=== PATIENT | male | born 1950 | race African-American/Black ===

== ENCOUNTER 2017-07-18 13:44 | Emergency (ER) | payer OTHER ==
[~2017-07-18] VITALS: Ht 167.6 cm; Wt 73.0 kg
[~2017-07-18 13:44] MED LIST: CYCL-36 PO; FAMO40TA PO; IBUP600T26 PO; LORTA5 PO; MOBI7.5T PO; TEMA15 PO; TIZA4 PO; ZIAC5TAB PO
[2017-07-18 13:55] VITALS: BP 188/81; PULSE 56; RESP 17; TEMP 98.5; O2SAT 99
[2017-07-18] MEDS ORDERED: SODIUM CHLOR 0.9% 1000 ML INJ 1,000 ML IV SCH (15:54)
[2017-07-18] MEDS ORDERED: LIDOCAINE VISCOUS 2% SOLN 15 ML UDC PO ONE (16:00)
[2017-07-18] MEDS ORDERED: MORPHINE SULFATE 8 MG/ML INJ IV PUSH ONE (16:00)
[2017-07-18] MEDS ORDERED: ONDANSETRON HCL 4 MG/2 ML VIAL IVP ONE (16:00)
[2017-07-18] MEDS ORDERED: KETOROLAC TROMETHAMINE 30 MG/ML (IVP) VIAL IVP ONE (16:00)
[2017-07-18] MEDS ORDERED: SODIUM CHLORIDE 0.9% FLUSH 10 ML FLUSH IV FLUSH PRN (16:00)
[2017-07-18] MEDS ORDERED: ALUMINUM/MAGNESIUM/SIMETH 30 ML CUP PO ONE (16:00)
[2017-07-18 16:07] LABS: BILIRUBIN, URINE NEG (NEG); BLOOD, URINE NEG (NEG); GLUCOSE,URINE NEG (NEG); HYALINE CAST, URINE 2 /lpf (RARE); KETONE, URINE NEG (NEG); MUCUS URINE MOD /lpf (OCC); NITRITE,URINE NEG (NEG); PH, URINE 5.5 (5.0-8.5); SQUAMOUS EPITHELIAL CELL URINE <1 /hpf (0-5); URINE COLOR YELLOW (YELLW/STRAW); URINE LEUKOCYTE ESTERASE NEG (NEG)
[2017-07-18 16:52] VITALS: O2SAT 100
[2017-07-18 16:53] VITALS: BP 192/94; PULSE 54; RESP 18; O2SAT 100
--- NOTE | 2017-07-18 17:16 | PD ---
Physical Exam Date Seen by Provider: Jul 18, 2017 Time Seen by Provider: 17:15 Narrative The patient is a 66-year-old male who was initially ChinDr. Wilkes. Please refer to the initial history, physical, diagnostic evaluation, and treatment modality plan. The patient was signed out at 5 PM laboratory evaluation and CT pending. Data Data Last Documented VS Vital Signs Date Time Temp Pulse Resp B/P (MAP) Pulse Ox O2 Delivery O2 Flow Rate FiO2 07/18/17 19:20 52 18 175/82 (113) 99 Room Air 07/18/17 13:55 98.5 Orders Orders Urinalysis - C+S If Indicated (07/18/17 13:57) Complete Blood Count With Diff (07/18/17 15:54) Comprehensive Metabolic Panel (07/18/17 15:54) Lipase (07/18/17 15:54) Ct Abd/Pel W Iv Contrast(Rout) (07/18/17 15:54) Iv Access Insert/Monitor (07/18/17 15:54) Ecg Monitoring (07/18/17 15:54) Oximetry (07/18/17 15:54) Ondansetron Inj (Zofran Inj) (07/18/17 16:00) Sodium Chlor 0.9% 1000 Ml Inj (Ns 1000 M (07/18/17 15:54) Sodium Chloride 0.9% Flush (Ns Flush) (07/18/17 16:00) Ketorolac Inj (Toradol Inj) (07/18/17 16:00) Morphine Inj (Morphine Inj) (07/18/17 16:00) Al-Mag Hy-Si 40-40-4 Mg/Ml Liq (Mag-Al P (07/18/17 16:00) Lidocaine 2% Viscous (Xylocaine 2% Visco (07/18/17 16:00) Iohexol 350 Inj (Omnipaque 350 Inj) (07/18/17 18:41) Potassium Chloride (Kcl) (07/18/17 19:45) Labs Laboratory Tests Test 07/18/17 15:08 07/18/17 16:30 Urine Color YELLOW Urine Turbidity CLEAR Urine pH 5.5 Urine Specific [place] 1.019 Urine Protein TRACE mg/dL Urine Glucose (UA) NEG mg/dL Urine Ketones NEG mg/dL Urine Occult Blood NEG Urine Nitrite NEG Urine Bilirubin NEG Urine Urobilinogen 2.0 MG/DL Urine Leukocyte Esterase NEG Urine WBC LESS THAN 1 /hpf Urine Squamous Epithelial Cells <1 /hpf Urine Hyaline Casts 2 /lpf Urine Mucus MOD /lpf Microscopic Urinalysis Comment CULT NOT INDICATED White Blood Count 4.7 TH/MM3 Red Blood Count 4.23 MIL/MM3 Hemoglobin 15.0 GM/DL Hematocrit 43.0 % Mean Corpuscular Volume 101.8 FL Mean Corpuscular Hemoglobin 35.6 PG Mean Corpuscular Hemoglobin Concent 34.9 % Red Cell Distribution Width 16.1 % Platelet Count 141 TH/MM3 Mean Platelet Volume 8.8 FL Neutrophils (%) (Auto) 55.0 % Lymphocytes (%) (Auto) 32.9 % Monocytes (%) (Auto) 9.1 % Eosinophils (%) (Auto) 2.1 % Basophils (%) (Auto) 0.9 % Neutrophils # (Auto) 2.6 TH/MM3 Lymphocytes # (Auto) 1.6 TH/MM3 Monocytes # (Auto) 0.4 TH/MM3 Eosinophils # (Auto) 0.1 TH/MM3 Basophils # (Auto) 0.0 TH/MM3 CBC Comment DIFF FINAL Differential Comment Blood Urea Nitrogen 9 MG/DL Creatinine 0.76 MG/DL Random Glucose 95 MG/DL Total Protein 8.3 GM/DL Albumin 4.2 GM/DL Calcium Level 9.2 MG/DL Alkaline Phosphatase 103 U/L Aspartate Amino Transf (AST/SGOT) 55 U/L Alanine Aminotransferase (ALT/SGPT) 24 U/L Total Bilirubin 1.8 MG/DL Sodium Level 135 MEQ/L Potassium Level 3.1 MEQ/L Chloride Level 99 MEQ/L Carbon Dioxide Level 28.8 MEQ/L Anion Gap 7 MEQ/L Estimat Glomerular Filtration Rate 124 ML/MIN Lipase 186 U/L [facility] Medical Record Reviewed: Yes Supervised Visit with ANGELO: No Interpretation(s) Last Impressions Abdomen/Pelvis CT 07/18/17 2754 Signed Impressions: Service Date/Time: Tuesday, July 18, 2017 18:39 - CONCLUSION: Negative for acute process. I do not see etiology for right-sided abdominal pain. Valdez Villa MD FACR Laboratory Tests Test 07/18/17 15:08 07/18/17 16:30 Urine Color YELLOW Urine Turbidity CLEAR Urine pH 5.5 Urine Specific [place] 1.019 Urine Protein TRACE mg/dL Urine Glucose (UA) NEG mg/dL Urine Ketones NEG mg/dL Urine Occult Blood NEG Urine Nitrite NEG Urine Bilirubin NEG Urine Urobilinogen 2.0 MG/DL Urine Leukocyte Esterase NEG Urine WBC LESS THAN 1 /hpf Urine Squamous Epithelial Cells <1 /hpf Urine Hyaline Casts 2 /lpf Urine Mucus MOD /lpf Microscopic Urinalysis Comment CULT NOT INDICATED White Blood Count 4.7 TH/MM3 Red Blood Count 4.23 MIL/MM3 Hemoglobin 15.0 GM/DL Hematocrit 43.0 % Mean Corpuscular Volume 101.8 FL Mean Corpuscular Hemoglobin 35.6 PG Mean Corpuscular Hemoglobin Concent 34.9 % Red Cell Distribution Width 16.1 % Platelet Count 141 TH/MM3 Mean Platelet Volume 8.8 FL Neutrophils (%) (Auto) 55.0 % Lymphocytes (%) (Auto) 32.9 % Monocytes (%) (Auto) 9.1 % Eosinophils (%) (Auto) 2.1 % Basophils (%) (Auto) 0.9 % Neutrophils # (Auto) 2.6 TH/MM3 Lymphocytes # (Auto) 1.6 TH/MM3 Monocytes # (Auto) 0.4 TH/MM3 Eosinophils # (Auto) 0.1 TH/MM3 Basophils # (Auto) 0.0 TH/MM3 CBC Comment DIFF FINAL Differential Comment Blood Urea Nitrogen 9 MG/DL Creatinine 0.76 MG/DL Random Glucose 95 MG/DL Total Protein 8.3 GM/DL Albumin 4.2 GM/DL Calcium Level 9.2 MG/DL Alkaline Phosphatase 103 U/L Aspartate Amino Transf (AST/SGOT) 55 U/L Alanine Aminotransferase (ALT/SGPT) 24 U/L Total Bilirubin 1.8 MG/DL Sodium Level 135 MEQ/L Potassium Level 3.1 MEQ/L Chloride Level 99 MEQ/L Carbon Dioxide Level 28.8 MEQ/L Anion Gap 7 MEQ/L Estimat Glomerular Filtration Rate 124 ML/MIN Lipase 186 U/L Differential Diagnosis Differential diagnosis includes nephrolithiasis, atypical cholecystitis, renal cell carcinoma, pancreatitis, atypical appendicitis, diverticulitis, pyelonephritis, abdominal pain NOS. Narrative Course The patient was initially evaluated by the previous physician, Dr. Wilkes. Please refer to the initial history, physical, diagnostic evaluation, and treatment modality plan. The patient was identified p.m. with CT of the abdomen and pelvis and laboratory evaluation pending. Patient's bilirubin is slightly elevated at 1.8. AST is slightly elevated in comparison ALT and MCV was 103, patient does have a history of alcohol use. The patient was reevaluated, his back pain has been ongoing for several years. He does have pain that starts in the right SI and radiates to the right flank. Patient's pain did improve with medications. He will be discharged home with a copy of his CT results and lab results. He is advised to follow-up with his primary physician and may benefit from outpatient follow-up with a pain interventionalists in regards to injections for his pain of 2 years duration. Return if symptoms worsen or progress. Diagnosis Primary Impression: Right flank pain, chronic Patient Instructions: General Instructions Additional Instruction: Medications as directed. Follow-up with your primary physician. Please provide the patient a copy of the CT results and lab results at discharge. Med/Other Pt SpecificInfo: Prescription(s) given Scripts Ibuprofen (Ibuprofen) 400 Mg Tab 400 MG PO Q6H Y for PAIN SCALE 1 TO 10, #12 TAB 0 Refills Prov: Devonte Huggins MD 07/18/17 Tramadol (Tramadol) 50 Mg Tab 50 MG PO Q6H Y for PAIN, #12 TAB 0 Refills Prov: Devonte Huggins MD 07/18/17 Disposition: 01 DISCHARGE HOME Condition: Stable Devonte Huggins MD Jul 18, 2017 17:16
--- NOTE | 2017-07-18 17:24 | PD ---
HPI Chief Complaint: Flank/Kidney Pain Time Seen by Provider: 15:50 Travel History International Travel<30 days: No Contact w/Intl Traveler<30days: No Traveled to known affect area: No History of Present Illness HPI 66-year-old male complains of right flank pain. He states the pain severe. He said the pain for months and is worsening. He reports the pain to be intermittent and at times unbearable. There is radiation to the anterior abdomen. He's had no vomiting. He follows with Dr. Portillo once annually following a routine colonoscopy. Evidently an ultrasound was planned however the patient skipped the appointment today to come to the ER instead. He also reports blood work was done on Sunday however is unsure of the results. No vomiting or diarrhea. Patient denies urinary frequency and dysuria. PFSH Past Medical History Cancer: No Cardiovascular Problems: No Diabetes: No Diminished Hearing: No Endocrine: No Gastrointestinal Disorders: No GERD: Yes Genitourinary: No Hepatitis: No Hiatal Hernia: No Hypertension: Yes Immune Disorder: No Medical other: No Musculoskeletal: Yes (hx: back pain ) Neurologic: No Psychiatric: No Reproductive: No Respiratory: No Thyroid Disease: No Past Surgical History Abdominal Surgery: Yes (HERNIA REPAIR) AICD: No Cardiac Surgery: No Ear Surgery: No Endocrine Surgery: No Eye Surgery: No Genitourinary Surgery: No Gynecologic Surgery: No Joint Replacement: No Neurologic Surgery: Yes (CERVICAL FUSION 2007) Oral Surgery: No Pacemaker: No Thoracic Surgery: No Other Surgery: Yes (cervical fusion 2008) Social History Alcohol Use: Yes (occassionally ) Tobacco Use: Yes (04/19 PPD) Substance Use: No Allergies-Medications (Allergen,Severity, Reaction): Coded Allergies: No Known Allergies (Verified , 07/16/13) Reported Meds & Prescriptions Reported Meds & Active Scripts Active Flexeril (Cyclobenzaprine HCl) 10 Mg Tab 10 Mg PO Q8HR [place] 5/325 (Hydrocodone/Acetaminophen 5/325) 5 mg/325 mg Tab 1 Tab PO Q6H PRN Ibuprofen 600 Mg Tab 600 Mg PO Q8H PRN Reported Mobic (Meloxicam) 7.5 Mg Tab 7.5 Mg PO BID Zanaflex 4 mg (Tizanidine HCl) 4 Mg Tab 1 Tab PO Q8H [place] 5/6.25 (Bisoprolol Fumarate/HCTZ) Tab 1 Tab PO DAILY Famotidine 40 Mg Tab 40 Mg PO HS Restoril 15 mg (Temazepam) 15 Mg Cap 1 Cap PO HS Review of Systems Except as stated in HPI: all other systems reviewed are Neg Physical Exam Narrative GENERAL: 66 yo M, WNWD, mild distress 2/2 pain Vital Signs Date Time Temp Pulse Resp B/P (MAP) Pulse Ox O2 Delivery O2 Flow Rate FiO2 07/18/17 16:53 54 18 192/94 (126) 100 Room Air 07/18/17 16:52 100 Room Air 07/18/17 13:55 98.5 56 17 188/81 (116) 99 SKIN: Warm and dry. HEAD: Atraumatic. Normocephalic. EYES: Pupils equal and round. No scleral icterus. No injection or drainage. ENT: No nasal bleeding or discharge. Mucous membranes pink and moist. NECK: Trachea midline. No JVD. CARDIOVASCULAR: Regular rate and rhythm. RESPIRATORY: No accessory muscle use. Clear to auscultation. Breath sounds equal bilaterally. GASTROINTESTINAL: Abdomen soft, non-tender, nondistended. Hepatic and splenic margins not palpable. MUSCULOSKELETAL: Extremities without clubbing, cyanosis, or edema. No obvious deformities. NEUROLOGICAL: Awake and alert. No obvious cranial nerve deficits. Motor grossly within normal limits. Five out of 5 muscle strength in the arms and legs. Normal speech. PSYCHIATRIC: Appropriate mood and affect; insight and judgment normal. Data Data Last Documented VS Vital Signs Date Time Temp Pulse Resp B/P (MAP) Pulse Ox O2 Delivery O2 Flow Rate FiO2 07/18/17 16:53 54 18 192/94 (126) 100 Room Air 07/18/17 13:55 98.5 Orders Orders Urinalysis - C+S If Indicated (07/18/17 13:57) Complete Blood Count With Diff (07/18/17 15:54) Comprehensive Metabolic Panel (07/18/17 15:54) Lipase (07/18/17 15:54) Urinalysis - C+S If Indicated (07/18/17 15:54) Ct Abd/Pel W Iv Contrast(Rout) (07/18/17 15:54) Iv Access Insert/Monitor (07/18/17 15:54) Ecg Monitoring (07/18/17 15:54) Oximetry (07/18/17 15:54) Ondansetron Inj (Zofran Inj) (07/18/17 16:00) Sodium Chlor 0.9% 1000 Ml Inj (Ns 1000 M (07/18/17 15:54) Sodium Chloride 0.9% Flush (Ns Flush) (07/18/17 16:00) Ketorolac Inj (Toradol Inj) (07/18/17 16:00) Morphine Inj (Morphine Inj) (07/18/17 16:00) Al-Mag Hy-Si 40-40-4 Mg/Ml Liq (Mag-Al P (07/18/17 16:00) Lidocaine 2% Viscous (Xylocaine 2% Visco (07/18/17 16:00) Labs Laboratory Tests Test 07/18/17 15:08 07/18/17 16:30 Urine Color YELLOW Urine Turbidity CLEAR Urine pH 5.5 Urine Specific [place] 1.019 Urine Protein TRACE mg/dL Urine Glucose (UA) NEG mg/dL Urine Ketones NEG mg/dL Urine Occult Blood NEG Urine Nitrite NEG Urine Bilirubin NEG Urine Urobilinogen 2.0 MG/DL Urine Leukocyte Esterase NEG Urine WBC LESS THAN 1 /hpf Urine Squamous Epithelial Cells <1 /hpf Urine Hyaline Casts 2 /lpf Urine Mucus MOD /lpf Microscopic Urinalysis Comment CULT NOT INDICATED MDM Medical Decision Making Medical Screen Exam Complete: Yes Emergency Medical Condition: Yes Medical Record Reviewed: Yes Differential Diagnosis Constipation, Gastritis, Acute Cholecystitis, Biliary Colic, Pancreatitis, AMADOR , Hepatitis, Bowel Obstruction, Cystitis, Mesenteric Ischemia, AAA, Appendicitis , Renal Stone/Hydronephrosis, GERD, perforated viscous Narrative Course Case discussed with the oncoming provider at 5 PM. Fall blood work and CT scan. Falls normal the patient may be appropriate for discharge home and follow -up with outpatient providers. Condition: Stable Nikolas Wilkes MD Jul 18, 2017 17:24
[2017-07-18 17:26] LABS: AUTOMATED NEUTROPHIL # 2.6 TH/MM3 (1.8-7.7); BASOPHIL % 0.9 % (0.0-2.0); EOSINOPHIL # 0.1 TH/MM3 (0-0.4); EOSINOPHIL % 2.1 % (0.0-4.0); LYMPH % 32.9 % (9.0-44.0); LYMPHOCYTE # 1.6 TH/MM3 (1.0-4.8); MEAN CELL VOLUME 101.8 FL (80.0-100.0); MEAN CORPUSCULAR HEMOGLOBIN 35.6 PG (27.0-34.0); MEAN CORPUSCULAR HGB CONC 34.9 % (32.0-36.0); MEAN PLATELET VOLUME 8.8 FL (7.0-11.0); MONO % 9.1 % (0.0-8.0); MONOCYTE # 0.4 TH/MM3 (0-0.9); PLATELET COUNT 141 TH/MM3 (150-450); RED BLOOD COUNT 4.23 MIL/MM3 (4.50-5.90); RED CELL DISTRIBUTION WIDTH 16.1 % (11.6-17.2); WHITE BLOOD COUNT 4.7 TH/MM3 (4.0-11.0)
[2017-07-18 17:41] LABS: ALBUMIN 4.2 GM/DL (3.4-5.0); AST (GOT) 55 U/L (15-37); BICARBONATE 28.8 MEQ/L (21.0-32.0); BLOOD UREA NITROGEN 9 MG/DL (7-18); CALCIUM 9.2 MG/DL (8.5-10.1); CHLORIDE 99 MEQ/L (98-107); CREATININE 0.76 MG/DL (0.60-1.30); GLOMERULAR FILTRATION RATE 124 ML/MIN (>89); GLUCOSE,RANDOM 95 MG/DL (74-106); SODIUM (NA) 135 MEQ/L (136-145)
[2017-07-18 17:42] LABS: ALT (GPT) 24 U/L (12-78)
[2017-07-18 17:44] LABS: ALKALINE PHOSPHATASE 103 U/L (45-117); TOTAL BILIRUBIN ADULT 1.8 MG/DL (0.2-1.0); TOTAL PROTEIN 8.3 GM/DL (6.4-8.2)
[2017-07-18 18:02] VITALS: BP 166/77; PULSE 53; RESP 16; O2SAT 99
[2017-07-18] MEDS ORDERED: MECL-62 PO (18:28)
[2017-07-18] MEDS ORDERED: TEMA15CA PO (18:28)
[2017-07-18] MEDS ORDERED: ZIAC106.25 PO (18:28)
[2017-07-18] MEDS ORDERED: IOHEXOL 350 MG/ML 10 ML VIAL (for RAD DIAG) IVCONTRAST ONE (18:41)
--- NOTE | 2017-07-18 19:15 | RADRPT ---
EXAM DATE/TIME: 07/18/2017 18:39 [place] COMPARISON: No previous studies available for comparison. INDICATIONS : Right abdominal pain. IV CONTRAST: 97 cc Omnipaque 350 (iohexol) IV ORAL CONTRAST: No oral contrast ingested. RADIATION DOSE: 6.46 CTDIvol (mGy) MEDICAL HISTORY : None SURGICAL HISTORY : None. ENCOUNTER: Initial ACUITY: 1 week PAIN SCALE: 5/10 LOCATION: Right flank TECHNIQUE: Volumetric scanning of the abdomen and pelvis was performed. Using automated exposure control and ad justment of the mA and/or kV according to patient size, radiation dose was kept as low as reasonably achievable to obtain optimal diagnostic quality images. DICOM format image data is available electro nically for review and comparison. FINDINGS: The lung base is are clear. The liver and gallbladder are unremarkable Pancreas and spleen appear normal Adrenal glands appear normal There is symmetrical renal function There is no ascites or adenopathy In the pelvis bladder, prostate and central vessels are unremarkable. Review of bone reveals degenerative changes in the lower lumbar spine and both SI joints. CONCLUSION: Negative for acute process. I do not see etiology for right-sided abdominal pain. Valdez Villa MD FACR on July 18, 2017 at 19:11 Board Certified Radiologist. This report was verified electronically.
[2017-07-18 19:20] VITALS: BP 175/82; PULSE 52; RESP 18; O2SAT 99
[2017-07-18] MEDS ORDERED: POTASSIUM CHLORIDE 20 MEQ CONTROLLED RELEASE TAB PO ONE (19:45)
[2017-07-18] MEDS ORDERED: TRAM50TA PO (20:03)
[2017-07-18] MEDS ORDERED: IBUP1TAB5 PO (20:03)
[2017-07-18 20:08] VITALS: BP 189/87
[2017-07-18] MEDS ORDERED: MORPHINE SULFATE 2 MG/ML SYRINGE IV PUSH ONE (20:15)
== END 2017-07-18 20:27 | disposition home or self-care (01) ==
LOC: NEPD 13:44
DX: R10.9 Unspecified abdominal pain (principal); I10 Essential (primary) hypertension; F17.200 Nicotine dependence, unspecified, uncomplicated
CPT/HCPCS: 74177; 80053; 81001; 83690; 85025; 96361; 96374; 96375; 96376; 99284; J1885; J2270; J2405; J7030; Q9967